=== PATIENT | male | born 1935 | race Caucasian/White ===

== ENCOUNTER → 2016-04-29 | Day surgery (SDC) | payer MEDICARE ==
[~2016-04-29] MED LIST: ACETAMINOPHEN 1000MG/100 ML PREMIX IV ONE; BUPIVACAINE 0.5% W/EPI MPF 30 ML VIAL IVP ONE; CEFAZOLIN 1G VIAL IM ONE; CEFAZOLIN 2 Gram 50 ML IVPB ONE; FAMOTIDINE 20MG TABLET PO ONE; FENTANYL PF 100MCG/2ML VIAL IV ONE; KETAMINE HCL 10 MG/ML (20ML) VIAL *PACU IV ONE; LIDOCAINE 1% W/EPI 1:200,000 MPF 30ML SQ ONE; LIDOCAINE 2% MDV (20MG/ML) 20ML VIAL IV ONE; MECLIZINE 25 MG TABLET PO ONE; METOCLOPRAMIDE 10 MG TABLET PO ONE; MIDAZOLAM HCL 2MG/2ML VIAL IV ONE; PROPOFOL 10 MG/ML VIAL IV ONE
--- NOTE | 2016-04-29 07:55 | History and Physical Report ---
DATE OF EVALUATION: 04/29/2016. CHIEF COMPLAINT AND HISTORY OF CHIEF COMPLAINT: This patient presents with a history of intractable postlaminectomy syndrome. He has a spinal cord stimulator in place with an internal generator with recent failure of stimulation patterns. After computer assessment and evaluation, the system was found to have multiple electrode failures. He is here for replacement of the leads and re-interface to recently positioned internal generator. PAST MEDICAL HISTORY: Noncontributory. REVIEW OF SYSTEMS: The patient is appropriate and in no acute distress. The remainder of the systems review is noncontributory. FAMILY HISTORY: Cancer. PAST SURGICAL HISTORY: Spinal cord stimulator and lumbar spinal surgery. ALLERGIES: None. MEDICATIONS ON ADMISSION: To be provided. PHYSICAL EXAMINATION: General: Height is 5 feet, 11 inches. Weight is 185 pounds. Vital Signs: Not available. HEENT: Within normal limits. Lungs: Clear. Heart: Regular rate and rhythm. Abdomen: Nontender. Musculoskeletal: Examination of the musculoskeletal system shows the incisional site for the leads approximating the mid lumbar spine. The generator is at the left posterior gluteal margin. All incisions are intact. Neurologic: Cranial nerves are intact. IMPRESSIONS: 1. POSTLUMBAR LAMINECTOMY SYNDROME, ICD10 CODE M96.1. 2. LUMBAR RADICULITIS, ICD10 CODE M54.16 AND M54.17. 3. SPINAL CORD STIMULATOR INTERNAL GENERATOR ELECTRODE FAILURE. PLANS: The patient is here for removal and replacement of the leads. The patient understands the potential risks, side effects, and complications and has agreed and consented. The procedure will be considered outpatient, although an overnight stay will be evaluated. Abraham Huerta D.O. Date Time JOB NUMBER: [id number] cc: Alexi Carrillo
[2016-04-29 11:16] LABS: BASO % 0.5 % (0-6); EOS % 0.9 % (0-6); GRAN % 70.7 % (47-80); HEMATOCRIT 40.9 % (42.0-52.0); HEMOGLOBIN 14.3 gm/dl (14.0-18.0); LYMPH % 15.1 % (16-45); MEAN CELL VOLUME 92.3 fl (81-97); MEAN CORPUSCULAR HEMOGLOBIN 32.3 pg (27-33); MEAN PLATELET VOLUME 10.1 fl (7.4-10.4); MONO % 12.8 % (0-9); PLATELET COUNT 272 K/uL (130-400); RED BLOOD COUNT 4.43 M/uL (4.40-5.70); RED CELL DISTRIBUTION WIDTH 12.6 % (11.5-14.5); WHITE BLOOD COUNT W/O DIFF 5.5 K/uL (4.2-12.2)
[2016-04-29 11:26] LABS: PARTIAL THROMBOPLASTIN TIME 28.3 SECONDS (24.5-39.1); PROTHROMBIN TIME (PATIENT) 11.3 SECONDS (9.5-12.1)
[2016-04-29 11:31] LABS: ANION GAP 10.2 (7-16); BLOOD UREA NITROGEN 21 mg/dL (9-20); CARBON DIOXIDE 28.8 mmol/L (22-30); CREATININE 0.9 mg/dL (0.66-1.25); EST GLOMERULAR FILTRATION RATE > 60 ml/min; GLUCOSE,RANDOM 99 mg/dL (70-110)
--- NOTE | 2016-04-29 19:03 | Operative Note ---
DATE OF PROCEDURE: 04/29/2016. PREOPERATIVE DIAGNOSES: 1. POSTLUMBAR LAMINECTOMY SYNDROME, ICD10 CODE M96.1. 2. LUMBAR RADICULITIS, ICD10 CODE M54.16 AND M54.17. 3. SPINAL CORD STIMULATOR, TWO LEADS, INTERNAL GENERATOR NONFUNCTIONAL. PROCEDURES: 1. Fluoroscopically guided incision, subcutaneous dissection, and removal of left spinal cord stimulator. 2. Fluoroscopically guided epidural access, left T12-L1. Placement of spinal cord stimulator Lead 1, a [employer] Octapolar with eight electrodes, inserted left of the midline at T7. 3. Complex programming of lead 1 for 20 minutes. 4. Incision, subcutaneous dissection, and release of anchor to right indwelling spinal cord stimulator. 5. Revision position right indwelling spinal cord stimulator retracting to T7. 6. Complex programming of internal indwelling stimulator 20 minutes. 7. Anchoring of lead 1 and indwelling lead to supraspinous fascia using anchoring device and nonabsorbable suture. 8. Incision, subcutaneous dissection, and opening of generator pouch, left posterosuperior gluteal margin. 9. Tunneling between the incision for tunneling leads into generator pouch, each lead interfaced to generator. 10. Closure of generator and lead incisions with Vicryl to the fascia running subcuticular Vicryl for the skin. Dermabond closure system. 11. Complex programming internal generator, home use, two stimulators for 20 minutes. SURGEON: Abraham Huerta D.O. ANESTHESIA: Local sedation. ANESTHESIA PROVIDER: Venkatesh Barnes CRNA. INDICATIONS: This is a patient with a history of postlaminectomy radiculopathy. He has an internal generator with two leads from [employer], both Octapolar. Programming has demonstrated nonfunctional left lead with a functional right lead. Although position of the active electrodes the right lead appeared to be high. He is here for revision and replacement. DESCRIPTION OF PROCEDURE: Intravenous line, vital sign monitoring, intravenous sedation by Anesthesia. The patient was positioned prone. Sterile prep and sterile technique. The incisional site for the two indwelling leads was infiltrated. An incision was made and subcutaneous dissection was conducted to the anchors. Each of the anchors was released, and the left lead was removed intact. The right lead was retracted approximately one vertebral body with the electrodes now at T7-8. Epidural access was then performed at 12-1 using an Epimed curved access needle left of the midline. Spinal cord stimulator lead 1 , a [employer] Octapolar with eight electrodes was inserted and directed left of the midline, upper electrode at T7. Complex programming of lead 1 over 20 minutes resulted in a pattern of stimulation on the patient's left side low back , hip, and leg. Complex programming of the indwelling revised lead was then performed with a good pattern of stimulation on the patient's right side low back, hip, and leg. The patient was questioned and indicated we had of the appropriate areas. He was re-sedated. The needle was removed and the left lead was anchored to the supraspinous fascia with a [employer] locking anchor. The indwelling right lead was then anchored with a similar anchor to the supraspinous fascia in its new, revised position. Each of the two leads was then tunneled into the left posterosuperior gluteal pouch which had been infiltrated with local, incised, and opened, and the the generator was removed and from the indwelling leads. The two leads tunneled into the generator pouch were then interfaced with the generator. Antibiotic irrigation and Bovie for hemostasis at both sites. The generator was placed in the pouch with the new interface to both leads and secured to the fascia with nonabsorbable suture. The incisions were all closed with Vicryl to the fascia and running subcuticular Vicryl for the skin. A Dermabond Closure System was placed. He was transported to the recovery room stable, showing no side effects from the procedure or the sedation. In the recovery room when fully awake and alert, complex programming of the internal generator was performed over 20 minutes, re-establishing stimulation pain controls to all appropriate areas. He was instructed on the use of this system and was provided with information on error messaging and was then prepared for discharge. DISCHARGE INSTRUCTIONS: 1. The sites will remain clean and dry; although the Dermabond will allow showering. He should not scrub the sites. 2. Standard medications may be resumed including an antibiotic with Levaquin 500 mg once a day for 14 days. 3. Other medications to be resumed. 4. The office will contact the patient in five to seven days to set up the appointment to come into the office to evaluate the sites. Until then, he should limit bend, twist, push, and pull, and keep his activities low. 4. All other instructions were provided, numbers to contact, and problems given. He was then be evaluated. Abraham Huerta D.O. Date Time JOB NUMBER: [id number] cc: Alexi Carrillo
== END | disposition home or self-care (01) ==
LOC: SUR 10:46
PROVIDERS: ATTEND Pain Medicine Interventional Pain Medicine
DX: T85.192A Other mechanical complication of implanted electronic neurostimulator of spinal cord electrode (lead), initial encounter (principal); M96.1 Postlaminectomy syndrome, not elsewhere classified; M54.16 Radiculopathy, lumbar region; M54.17 Radiculopathy, lumbosacral region; N40.0 Benign prostatic hyperplasia without lower urinary tract symptoms
CPT/HCPCS: 85025; 85730; 85610; 80048; 85002; 63663; 01936; J3010; J0690